=== PATIENT | female | born 1930 | race Caucasian/White ===

== ENCOUNTER 2017-07-17 11:44 | Inpatient (IN) | payer MEDICARE, BC ==
[~2017-07-17] VITALS: Ht 170.2 cm; Wt 55.5 kg
[2017-07-17 13:20] LABS: BASOPHILS # (AUTO) 0.1 (0.0-0.1); BASOPHILS % 0.6 % (0.0-1.0); EOSINOPHILS # (AUTO) 0.3 (0.0-0.4); EOSINOPHILS % 3.1 % (0.0-6.0); HEMATOCRIT 43.2 % (34.2-44.1); LYMPHOCYTES # (AUTO) 1.5 (1.0-3.2); LYMPHOCYTES % 18.8 % (18.0-39.1); MEAN CORPUSCULAR HEMOGLOBIN 29.5 pg (28-32); MEAN CORPUSCULAR HGB CONC 32.4 g/dL (31-35); MEAN CORPUSCULAR VOLUME 90.9 fL (81-99); MONOCYTES # (AUTO) 1.3 (0.2-0.8); MONOCYTES % 15.7 % (4.4-11.3); NEUTROPHILS # (AUTO) 4.9 (2.1-6.9); NEUTROPHILS % 61.5 % (38.7-80.0); PLATELET COUNT 189 x10e3/uL (140-360); RED BLOOD COUNT 4.75 x10e6/uL (3.6-5.1); RED CELL DISTRIBUTION WIDTH 15.1 % (11.7-14.4)
[2017-07-17 13:29] LABS: INR 0.93; PARTIAL THROMBOPLASTIN TIME 30.7 seconds (23.8-35.5); PROTHROMBIN TIME 12.9 seconds (11.9-14.5)
--- NOTE | 2017-07-17 13:30 | Diagnostic Imaging Report ---
Exam: Head CT without contrast History: Altered mental status Comparison studies: None Technique: Axial images were obtained from the skull base to the vertex. Coronal and sagittal images reconstructed from the axial data. Intravenous contrast: None Findings: Scalp: No abnormalities. Bones: No fractures, blastic or lytic lesions. Brain sulci: Mildly prominent. Ventricles: Mild compensatory dilatation of the lateral and third ventricles. Normal size fourth ventricle. No hydrocephalus. Extra-axial spaces: No masses, no fluid collection. Parenchyma: No mass, acute hemorrhage or acute or chronic cortical vascular insults. A few subtle hypodensities in the supratentorial white matter are nonspecific but most compatible with small vessel ischemic changes. Small nonspecific focal hypodensity in the left frontal mart radiata may reflect age-indeterminate nonhemorrhagic lacunar insult or changes related to chronic small vessel ischemic changes. Sellar/suprasellar region: No abnormalities. Craniocervical junction: Patent foramen magnum. No Chiari one malformation. Incidental findings: Atherosclerotic calcifications in the carotid siphons. Bilateral lens replacements related to previous cataract surgery. Soft tissues in the right external auditory canal (likely impacted cerumen). IMPRESSION: 1. No mass, acute hemorrhage or acute cortical vascular insults. 2. Small age-indeterminate nonhemorrhagic insult in the left frontal mart radiata. 3. Mild generalized volume loss. 4. Mild chronic microvascular ischemic changes. Signed by: Dr. Anthony Dimas M.D. on 07/17/2017 1:26 PM
--- NOTE | 2017-07-17 13:31 | Diagnostic Imaging Report ---
PROCEDURE: A single AP view of the chest. COMPARISON: None. INDICATIONS: AMS, CHEST PAIN FINDINGS: Lines/tubes: None. Lungs: The lungs are hyperexpanded bilaterally. No parenchymal mass. No focal consolidation. Pleura: Small left pleural effusion. No pneumothorax. Heart and mediastinum: The heart and the mediastinum are unremarkable. Bones: No acute bony abnormality. Degenerative changes of the thoracic spine. Median sternotomy wires. IMPRESSION: Small left pleural effusion. Emphysematous changes. Dictated by: Erick Sawant M.D. on 07/17/2017 at 13:40 Electronically approved by: Erick Sawant M.D. on 07/17/2017 at 13:40
[2017-07-17 13:39] LABS: ALBUMIN 4.2 g/dL (3.5-5.0); ALBUMIN/GLOBULIN RATIO 1.1 (0.8-2.0); ANION GAP 15.8 mmol/L (8-16); CALCIUM 9.2 mg/dL (8.4-10.2); CREATININE, SERUM 1.1 mg/dL (0.57-1.11); POTASSIUM 3.8 mmol/L (3.5-5.1)
[2017-07-17] MEDS ORDERED: SODIUM CHLORIDE 0.9% 500ML 500 ML IV STA (13:53)
[2017-07-17 13:58] LABS: CREATINE KINASE MB 8.5 ng/mL (0.00-5.00); THYROID STIMULATING HORMONE 2.042 uIU/mL (0.350-4.940)
[2017-07-17] MEDS ORDERED: LORAZEPAM INJ 2 MG/ML VIAL IV ONE (14:15)
[2017-07-17] MEDS ORDERED: SODIUM CHLORIDE FLUSH 10 ML SYR INJ PRN (14:15)
[2017-07-17] MEDS ORDERED: ONDANSETRON HCL INJ 2 MG/ML VIAL IV PRN (14:15)
[2017-07-17 15:12] LABS: BILIRUBIN,URINE NEGATIVE (NEGATIVE); KETONES,URINE TRACE (NEGATIVE); LEUKOCYTE ESTERASE ,URINE 1+ (NEGATIVE); NITRITE,URINE NEGATIVE (NEGATIVE); URINE UROBILINOGEN 1 mg/dL (0.2 - 1)
[2017-07-17 15:13] LABS: CLARITY,URINE CLEAR (CLEAR); COLOR,URINE YELLOW (YELLOW); PROTEIN,URINE DIPSTICK 1+ (NEGATIVE)
[2017-07-17 15:24] LABS: BACTERIA,URINE RARE /HPF; EPITHELIAL CELLS,URINE FEW /LPF; MUCUS,URINE FEW (RARE); RBC,URINE 0-5 /HPF (0-5)
[2017-07-17] MEDS ORDERED: DIGOXIN125 MCG PO (18:03)
[2017-07-17] MEDS ORDERED: POTASSIUM CHLO10 ME1 PO (18:03)
[2017-07-17] MEDS ORDERED: METOPROLOL SUCC25 MG PO (18:03)
[2017-07-17] MEDS ORDERED: ASPIRIN325 MG PO (18:03)
[2017-07-17] MEDS ORDERED: SYNTHROID100 MCG PO ×2 (18:03)
[2017-07-17] MEDS ORDERED: FUROSEMIDE40 MG PO (18:03)
[2017-07-17] MEDS ORDERED: CRESTOR10 MG PO (18:03)
[2017-07-17 18:26] VITALS: BP 135/62
[2017-07-17 20:00] VITALS: BP 108/48
[2017-07-17 20:05] VITALS: BP 108/48
--- NOTE | 2017-07-17 20:29 | History and Physical ---
CHIEF COMPLAINT: Confusion. HISTORY OF PRESENT ILLNESS: This is an 87-year-old white woman who presents to [facility] emergency room with a 1-day history of worsening confusion. The patient does have myocardial impairment, but her confusion has been much worse over the last 24 hours. Four days prior to this visit, her suffered a mechanical fall, which resulted in left hip fracture. The patient's subsequently underwent surgery to repair the left hip fracture and is currently hospitalized. The patient's confusion began late last night, according to family members. The patient states she has had a slight cough for a couple of days. The patient denies any fever or chills. In the emergency room, the patient was found to have a white blood cell count of 7900 with 61% segmented neutrophils. The patient's BUN and creatinine were slightly elevated at 26 and 1.1 respectively. Urinalysis did reveal trace ketones, trace blood, 1+ leukocyte esterase, 6-10 white blood cells per high power field and rare bacteria. The patient's influenza type A and B antigen were negative. The patient underwent a chest x-ray in the emergency room which revealed a small left pleural effusion as well as emphysematous changes. The patient was admitted for further evaluation and treatment. REVIEW OF SYSTEMS GENERAL: Weight has been stable. Confusion over the last 24 hours, according to family members. No fever or chills. HEENT: No headaches; no visual changes. CARDIOVASCULAR: The patient states for the last couple of days she has had cough. She denies any chest pain or tightness. GI: No nausea, vomiting or constipation. : No urinary tract infection type symptoms. NEUROMUSCULAR: No limb weakness or numbness. PAST MEDICAL HISTORY: 1. Coronary artery disease (history of coronary artery bypass grafting). 2. Chronic systolic congestive heart failure. 3. Hypothyroidism. 4. Chronic bilateral ankle edema. 5. Allergic rhinitis. 6. Stage 1 chronic kidney disease. 7. Hypertensive heart disease. 8. Hyperlipidemia. 9. History of breast cancer in 1991, which resulted in mastectomy and radiation therapy. 10. Paroxysmal atrial fibrillation. PAST SURGICAL HISTORY: 1. Left mastectomy in 1991 because of breast cancer. 2. Radiation therapy because of breast cancer in 1991. 3. Thyroidectomy surgery twice (partial in 1981 and then complete removal in 1983). 4. Coronary artery bypass grafting in 2013. SOCIAL HISTORY: She is and lives with her . As previously stated, her recently underwent left hip surgery to repair a fracture. He is currently hospitalized at a local hospital. The patient denies any tobacco use. The patient states she only drinks alcohol on very sporadic occasions. ALLERGIES: 1. PENICILLIN. 2. LATEX. FAMILY HISTORY: Noncontributory. MEDICATIONS: 1. Digoxin 0.125 mg once a day. 2. Furosemide 40 mg daily. 3. Metoprolol succinate 25 mg daily. 4. Synthroid 100 mcg daily. 5. Potassium chloride 10 mEq daily. 6. Crestor 5 mg daily. 7. Aspirin 325 mg daily. 8. Hair, skin and nail formula multivitamins once daily. PHYSICAL EXAMINATION GENERAL: She is awake, alert. She does get confused easily. She is somewhat emotional, but she is pleasant and cooperative with exam. VITAL SIGNS: Blood pressure 125/57, pulse 82, respiratory rate 14, oxygen saturation 98%, temperature 98.5. Height 5 feet 7 inches, weight 126 pounds. Calculated body mass index 19. INTEGUMENT: Skin is warm and dry. No pallor, jaundice, diaphoresis. HEENT: Anicteric sclerae with moist mucous membranes. NECK: Supple with no evidence of jugular venous distention. CARDIOVASCULAR: Distant heart sounds, regular rate and rhythm with an S3 gallop. LUNGS: The patient has faint crackles at the bases bilaterally. ABDOMEN: Soft. Benign. EXTREMITIES: Trace edema in the bilateral lower legs. NEUROLOGIC: Intact. DIAGNOSES 1. Altered mentation likely secondary to urinary tract infection. 2. Metabolic encephalopathy likely secondary to urinary tract infection. 3. Urinary tract infection. 4. Xijlc-hk-swypwdc renal failure. 5. Acute systolic congestive heart failure. 6. Possible left lobar pneumonia. PLAN: 1. Will follow blood and urine cultures. 2. Continue intravenous ceftriaxone. 3. Will order a 2D echocardiogram. 4. Rule out myocardial infarction. 5. Gentle intravenous fluids. 6. Follow renal function. 7. Order chest x-ray in the morning after adequately hydrating the patient. I spoke at length with the family members. I spent an hour in the care of this case. Job#: [id number] MTDD
[2017-07-17] MEDS ORDERED: ZIPRASIDONE 20 MG VIAL IM PRN (20:30)
[2017-07-18] VITALS (8 sets, daily range): BP systolic 98–141; BP diastolic 51–62
[2017-07-18] MEDS: CEFTRIAXONE SOD 1 GM VIAL IV SCH ×2 (02:18→15:08)
[2017-07-18] MEDS: SODIUM CHLORIDE 0.9% 1000ML 1,000 ML IV SCH ×3 (02:19→17:38)
--- NOTE | 2017-07-18 06:01 | Diagnostic Imaging Report ---
EXAM: CHEST SINGLE (PORTABLE), AP 1 view ORDER DATE: 07/18/2017 5:00 AM Time stamp on exam: 0532 hours INDICATION: Left pleural effusion COMPARISON: AP view of the chest July 17, 2017 FINDINGS: LINES/TUBES: Median sternotomy wires and epicardial pacemaker. LUNGS: Advanced emphysematous changes. Left lower lobe atelectasis. Right mid lung scarring. PLEURA: Stable small left pleural effusion versus pleural thickening. HEART AND MEDIASTINUM: Stable appearance. BONES AND SOFT TISSUES: No acute findings. IMPRESSION: No interval change. Signed by: Dr. Carolee Ashley M.D. on 07/18/2017 5:57 AM
[2017-07-18 06:45] LABS: BASOPHILS % 0.8 % (0.0-1.0); EOSINOPHILS # (AUTO) 0.3 (0.0-0.4); EOSINOPHILS % 4.9 % (0.0-6.0); HEMATOCRIT 32.8 % (34.2-44.1); HEMOGLOBIN 10.7 g/dL (12.0-16.0); LYMPHOCYTES # (AUTO) 1.3 (1.0-3.2); LYMPHOCYTES % 24.8 % (18.0-39.1); MEAN CORPUSCULAR HEMOGLOBIN 29.8 pg (28-32); MEAN CORPUSCULAR HGB CONC 32.6 g/dL (31-35); MEAN CORPUSCULAR VOLUME 91.4 fL (81-99); MONOCYTES # (AUTO) 0.9 (0.2-0.8); MONOCYTES % 17.4 % (4.4-11.3); NEUTROPHILS # (AUTO) 2.7 (2.1-6.9); NEUTROPHILS % 51.7 % (38.7-80.0); PLATELET COUNT 134 x10e3/uL (140-360); RED BLOOD COUNT 3.59 x10e6/uL (3.6-5.1); RED CELL DISTRIBUTION WIDTH 15.3 % (11.7-14.4)
[2017-07-18 06:58] LABS: ANION GAP 11.6 mmol/L (8-16); BLOOD UREA NITROGEN 17 mg/dL (7-26); BUN/CREATININE RATIO 23 (6-25); CALCIUM 8.1 mg/dL (8.4-10.2); CARBON DIOXIDE 25 mmol/L (22-29); CHLORIDE 109 mmol/L (98-107); CREATININE, SERUM 0.74 mg/dL (0.57-1.11); EST GLOMERULAR FILTRATION RATE > 60 ML/MIN (60-); GLUCOSE 75 mg/dL (74-118); POTASSIUM 3.6 mmol/L (3.5-5.1); SODIUM 142 mmol/L (136-145)
[2017-07-18] MEDS ORDERED: LEVOTHYROXINE SODIUM 100 MCG TAB PO SCH (09:00)
[2017-07-18] MEDS: ASPIRIN 325 MG TAB PO SCH (09:32)
[2017-07-18] MEDS: POTASSIUM CHLORIDE 10 MEQ TABCR PO SCH (09:32)
[2017-07-18] MEDS: DIGOXIN 0.125 MG TAB PO SCH (09:32)
[2017-07-18] MEDS: FUROSEMIDE 40 MG TAB PO SCH (09:33)
[2017-07-18] MEDS: METOPROLOL SUCCINATE 25 MG TAB XL PO SCH (11:19)
[2017-07-18] MEDS ORDERED: SIMVASTATIN 40 MG TAB PO SCH (21:00)
[2017-07-18] MEDS ORDERED: SIMVASTATIN 20 MG TAB PO SCH (21:00)
[2017-07-19] VITALS: BP 126/56
[2017-07-19] MEDS: SODIUM CHLORIDE 0.9% 1000ML 1,000 ML IV SCH (03:06)
[2017-07-19] MEDS: CEFTRIAXONE SOD 1 GM VIAL IV SCH ×2 (03:06→15:05)
[2017-07-19 04:00] VITALS: BP 102/48
[2017-07-19] MEDS ORDERED: LEVOTHYROXINE SODIUM 100 MCG TAB PO SCH (06:00)
[2017-07-19 07:08] LABS: BASOPHILS # (AUTO) 0.1 (0.0-0.1); BASOPHILS % 1.1 % (0.0-1.0); EOSINOPHILS # (AUTO) 0.5 (0.0-0.4); EOSINOPHILS % 8.8 % (0.0-6.0); HEMATOCRIT 36.7 % (34.2-44.1); HEMOGLOBIN 11.7 g/dL (12.0-16.0); LYMPHOCYTES # (AUTO) 1.3 (1.0-3.2); MEAN CORPUSCULAR HEMOGLOBIN 29.5 pg (28-32); MEAN CORPUSCULAR HGB CONC 31.9 g/dL (31-35); MEAN CORPUSCULAR VOLUME 92.4 fL (81-99); MONOCYTES # (AUTO) 0.9 (0.2-0.8); MONOCYTES % 16.1 % (4.4-11.3); NEUTROPHILS # (AUTO) 2.9 (2.1-6.9); NEUTROPHILS % 50.8 % (38.7-80.0); PLATELET COUNT 146 x10e3/uL (140-360); RED BLOOD COUNT 3.97 x10e6/uL (3.6-5.1); RED CELL DISTRIBUTION WIDTH 15.6 % (11.7-14.4)
[2017-07-19 07:31] LABS: ALANINE AMINOTRANSFERASE 23 IU/L (0-55); ALBUMIN 2.8 g/dL (3.5-5.0); ALKALINE PHOSPHATASE 68 IU/L (40-150); ANION GAP 11.8 mmol/L (8-16); BLOOD UREA NITROGEN 15 mg/dL (7-26); BUN/CREATININE RATIO 21 (6-25); CALCIUM 7.7 mg/dL (8.4-10.2); CARBON DIOXIDE 25 mmol/L (22-29); CHLORIDE 110 mmol/L (98-107); CREATININE, SERUM 0.71 mg/dL (0.57-1.11); EST GLOMERULAR FILTRATION RATE > 60 ML/MIN (60-); GLUCOSE 83 mg/dL (74-118); POTASSIUM 3.8 mmol/L (3.5-5.1); SODIUM 143 mmol/L (136-145)
[2017-07-19 07:52] VITALS: BP 135/62
[2017-07-19] MEDS: ASPIRIN 325 MG TAB PO SCH (08:38)
[2017-07-19] MEDS: METOPROLOL SUCCINATE 25 MG TAB XL PO SCH (08:39)
[2017-07-19] MEDS: FUROSEMIDE 40 MG TAB PO SCH (08:39)
[2017-07-19] MEDS: DIGOXIN 0.125 MG TAB PO SCH (08:39)
[2017-07-19] MEDS: POTASSIUM CHLORIDE 10 MEQ TABCR PO SCH (08:39)
[2017-07-19] MEDS ORDERED: FUROSEMIDE INJ 10 MG/ML 4 ML VIAL IV ONE (09:45)
--- NOTE | 2017-07-19 10:18 | Discharge Summary ---
ADMITTING DIAGNOSES 1. Altered mentation likely secondary to urinary tract infection. 2. Metabolic encephalopathy likely secondary to urinary tract infection. 3. Sepsis from urinary tract infection. 4. Rttjv-rr-wykvxfi renal failure. 5. Wgtzq-uq-sexfays systolic congestive heart failure. 6. Possible left lower lobe pneumonia, likely gram-negative josephine. DISCHARGE DIAGNOSES 1. Altered mentation secondary to metabolic encephalopathy from sepsis, resolved. 2. Sepsis secondary to urinary tract infection, resolved. 3. Urinary tract infection, resolving. 4. Left lower lobe pneumonia, likely gram-negative josephine, resolved. 5. Dmyqy-ak-mkizqdl renal failure, resolved. 6. Ecork-fj-cfxpygu systolic congestive heart failure, resolving. HOSPITAL COURSE: This is an 87-year-old white woman, who was initially admitted to [facility] with a diagnosis of altered mentation secondary to metabolic encephalopathy, likely from sepsis. It was felt the patient's sepsis was secondary to urinary tract infection and perhaps left lower lobe pneumonia that was thought to be gram-negative josephine in etiology. The patient improved dramatically with intravenous fluids and antibiotics, namely ceftriaxone. The patient's blood and urine cultures, however, did not reveal any growth. The patient, however, was in a hospital setting for 4 days prior to this admission visiting her , who had sustained a left hip fracture. It was thought that perhaps during her prolonged visit with her that she contracted pneumonia and urinary tract infection, both most likely gram-negative josephine in origin. Once again, the patient improved clinically with intravenous ceftriaxone. The patient's renal function improved dramatically with intravenous fluids. The patient's BUN and creatinine on admission were 26 and 1.1 respectively. On the date of discharge, the patient's BUN and creatinine were 15 and 0.71 respectively. The patient was found to have an elevated B-type natriuretic peptide level of 560 during this hospitalization. Thus, she was given a few doses of intravenous furosemide, which she tolerated quite well. During this hospital stay, the patient was found to have a normal TSH at 2.042. The patient also had serial cardiac enzymes as well as electrocardiograms done during this hospital stay, which did not reveal any evidence of acute myocardial ischemia or infarction. Moreover, during this hospitalization, the patient underwent a 2-D echocardiogram, which revealed a preserved left ventricular ejection fraction of 60% to 65%, but it did reveal findings consistent with diastolic dysfunction. The patient's condition on discharge was stable. The patient's confusion resolved completely during this hospital stay, as previously stated. DISCHARGE MEDICATIONS 1. Ciprofloxacin 250 mg 1 p.o. b.i.d. for 3 days. 2. Furosemide 40 mg daily. 3. Metoprolol succinate 25 mg daily. 4. Digoxin 0.125 mg once a day. 5. Synthroid 100 mcg daily. 6. Potassium chloride 10 mEq daily. 7. Crestor 5 mg nightly. 8. Aspirin 325 mg daily. 9. Hair, skin and nail formula multivitamins once daily. FOLLOWUP INSTRUCTIONS: The patient was instructed to follow up with her primary care physician, namely myself, Dr. Kev Rudd, within the next 10 to 14 days. KEV RUDD MD Job#: [id number] [facility]
[2017-07-19 11:05] VITALS: BP 135/62
[2017-07-19 11:52] VITALS: BP 117/56
[2017-07-19] MEDS ORDERED: CIPRO250 MG PO (15:39)
[2017-07-19 15:57] VITALS: BP 108/54
== END 2017-07-19 17:38 | disposition home or self-care (01) | DRG 871 ==
LOC: ER 11:44 → IMCU 16:22 → OBSVTOIN 07-18 11:15 → MED/SURG 07-18 12:07
PROVIDERS: ADMIT Internal Medicine; ATTEND Internal Medicine
DX: A41.9 Sepsis, unspecified organism (principal); G93.41 Metabolic encephalopathy; I50.33 Acute on chronic diastolic (congestive) heart failure; N17.9 Acute kidney failure, unspecified; J15.6 Pneumonia due to other Gram-negative bacteria; N39.0 Urinary tract infection, site not specified; I13.0 Hypertensive heart and chronic kidney disease with heart failure and stage 1 through stage 4 chronic kidney disease, or unspecified chronic kidney disease; F03.90 Unspecified dementia, unspecified severity, without behavioral disturbance, psychotic disturbance, mood disturbance, and anxiety; N18.1 Chronic kidney disease, stage 1; I48.0 Paroxysmal atrial fibrillation; I25.10 Atherosclerotic heart disease of native coronary artery without angina pectoris; Z95.1 Presence of aortocoronary bypass graft; E89.0 Postprocedural hypothyroidism; Z85.3 Personal history of malignant neoplasm of breast; Z92.3 Personal history of irradiation; Z79.82 Long term (current) use of aspirin; Z88.0 Allergy status to penicillin; Z91.040 Latex allergy status
CPT/HCPCS: 36415; 70450; 71045; 80048; 80053; 81001; 82550; 82553; 83690; 83880; 84443; 84484; 85025; 85610; 85730; 87040; 87086; 87400; 93005; 93306; 96360; 96361; 99284; G0378; J0696; J1940; J7030; J7040